=== PATIENT | male | born 1980 | race African-American/Black ===

== ENCOUNTER 2018-11-25 10:24 | Emergency (ER) | payer SELFPAY ==
[~2018-11-25] VITALS: Ht 198.1 cm; Wt 125.0 kg
[2018-11-25 10:45] VITALS: Ht 198.1 cm; Wt 125.0 kg
[2018-11-25] MEDS ORDERED: LISINOPRIL20 MG PO (10:46)
[2018-11-25] MEDS ORDERED: NORVASC5 MG PO (10:47)
[2018-11-25] MEDS ORDERED: NORVASC10 MG PO (10:47)
[2018-11-25] MEDS ORDERED: INDERAL 40 MG T40 MG PO (10:48)
[2018-11-25] MEDS ORDERED: TORADOL10 MG PO (12:27)
[2018-11-25 13:27] VITALS: BP 138/82
== END 2018-11-25 13:28 | disposition home or self-care (01) ==
LOC: D.ER 10:24
DX: S99.912A Unspecified injury of left ankle, initial encounter (principal); W18.31XA Fall on same level due to stepping on an object, initial encounter; Y93.89 Activity, other specified; Y92.89 Other specified places as the place of occurrence of the external cause